=== PATIENT | female | born 1985 | race Caucasian/White ===

== ENCOUNTER 2022-08-02 01:00 | Emergency (ER) | payer SELFPAY ==
[2022-08-02] MEDS ORDERED: Sodium Chloride 0.9% 1,000 ML IV ONE (01:46)
[2022-08-02] MEDS ORDERED: Ondansetron 4 MG/2 ML SDV IVPUSH ONE (01:46)
[2022-08-02] MEDS ORDERED: Sodium Chloride 0.9% 10 ML Syringe FLUSH PRN (01:46)
[2022-08-02] MEDS ORDERED: Sodium Chloride 0.9% 2.5 ML Syringe FLUSH PRN (01:46)
[2022-08-02 01:56] LABS: BASOPHILS ABSOLUTE AUTO 0.1 K/uL (0.0-0.1); BASOPHILS PERCENT AUTO 0.5 % (0.0-1.5); EOSINOPHILS ABSOLUTE AUTO 0.4 K/uL (0.0-0.7); EOSINOPHILS PERCENT AUTO 3.8 % (0.0-7.0); HEMATOCRIT 37.7 % (36.0-46.0); HEMOGLOBIN 13.1 g/dL (12.0-16.0); LYMPHOCYTES PERCENT AUTO 31.4 % (16.0-40.0); MEAN CORPUSCULAR HEMOGLOBIN 28.2 pg (27.0-32.0); MEAN CORPUSCULAR HGB CONC 34.7 g/dL (31.0-37.0); MEAN CORPUSCULAR VOLUME 81.1 fL (80.0-98.0); MONOCYTES ABSOLUTE AUTO 1.1 K/uL (0.0-0.8); MONOCYTES PERCENT AUTO 11.9 % (0.0-15.0); NEUTROPHILS ABSOLUTE AUTO 4.9 K/uL (1.4-5.7); NEUTROPHILS PERCENT AUTO 52.4 % (48.0-80.0); NRBC ABSOLUTE 0 K/uL; PLATELET COUNT,PLT 436 K/uL (150-400); RED BLOOD CELL COUNT 4.65 M/uL (4.30-5.90); WHITE BLOOD CELL COUNT,WBC 9.42 K/uL (4.0-11.0)
[2022-08-02] MEDS ORDERED: Morphine 4 MG/ML Syringe IVPUSH ONE (02:05)
[2022-08-02 02:28] LABS: A/G RATIO 1.1 (0.9-1.6); ALANINE AMINOTRANSFERASE,ALT 35 IU/L (14-63); ALBUMIN 3.6 g/dL (3.4-5.0); ALKALINE PHOSPHATASE 85 U/L (46-116); ASPARTATE AMNIOTRANSFERASE,AST 19 IU/L (15-37); BILIRUBIN TOTAL 0.6 mg/dL (0.2-1.0); BLOOD UREA NITROGEN,BUN 9 mg/dL (7.0-18.0); CALCIUM 8.2 mg/dL (8.5-10.1); CARBON DIOXIDE,CO2 24.3 mmol/L (21.0-32.0); CHLORIDE,CL 107 mmol/L (98-107); CREATININE 0.9 mg/dL (0.6-1.0); EST CRCL DRUG DOSING (CG) 73.19 mL/min; GLUCOSE RANDOM 105 mg/dL (74-106); LIPASE 62 U/L (73-393); POTASSIUM,K 3.3 mmol/L (3.5-5.1); PROTEIN TOTAL,TP 6.9 g/dL (6.4-8.2); SODIUM,NA 141 mmol/L (136-145)
[2022-08-02 02:29] LABS: ESTIMATED GFR 84 mL/min (>60)
[2022-08-02 02:40] LABS: LACTIC ACID 1.2 mmol/L (0.4-2.0)
[2022-08-02] MEDS ORDERED: Iopamidol 755 MG/ML 500 ML Multipack Bottle IVPUSH STA (03:07)
[2022-08-02 03:36] LABS: APPEARANCE,URINE CLEAR; BILIRUBIN,URINE NEGATIVE (NEGATIVE); COLOR,URINE YELLOW; GLUCOSE,URINE NEGATIVE (NEGATIVE); KETONES,URINE NEGATIVE (NEGATIVE); LEUKOCYTE ESTERASE,URINE NEGATIVE (NEGATIVE); NITRITE,URINE NEGATIVE (NEGATIVE); OCCULT BLOOD,URINE NEGATIVE (NEGATIVE); PH,URINE 5.5 (5.0-8.0); PROTEIN,URINE TRACE mg/dL (NEGATIVE); UROBILINOGEN,URINE 0.2 EU/dL (<2.0)
[2022-08-02 04:08] LABS: BACTERIA,URINE RARE (NEGATIVE); EPITHELIAL CELLS,URINE FEW (NONE-FEW); MUCUS,URINE LIGHT (NONE-MOD); RBC,URINE 0-1 (0-2/HPF); WBC,URINE 0-2 (0-5/HPF)
== END 2022-08-02 04:22 | disposition home or self-care (01) ==
LOC: MW.ED 01:00
DX: R10.9 Unspecified abdominal pain (principal); R11.2 Nausea with vomiting, unspecified; Z72.0 Tobacco use; Z20.822 Contact with and (suspected) exposure to COVID-19
CPT/HCPCS: 36415; 74177; 80053; 81001; 83605; 83690; 84484; 84703; 85025; 87635; 93005; 96374; 96375; 99284; J2270; J2405; J3490; J7030; Q9967; U0002